=== PATIENT | male | born 1935 | race Caucasian/White ===

== ENCOUNTER 2024-11-15 05:40 | Day surgery (SDC) | payer MEDICARE, BC ==
[2024-11-15] MEDS: Sodium Chloride 0.9% 10 ML Syringe FLUSH PRN (07:26)
[2024-11-15 08:45] VITALS: BP 123/60; PULSE 70
== END 2024-11-15 09:00 | disposition home or self-care (01) ==
LOC: JP.SDS 05:40
PROVIDERS: ATTEND Ophthalmology
DX: E11.36 Type 2 diabetes mellitus with diabetic cataract (principal); H25.12 Age-related nuclear cataract, left eye; E78.00 Pure hypercholesterolemia, unspecified; I10 Essential (primary) hypertension; Z79.82 Long term (current) use of aspirin; Z79.84 Long term (current) use of oral hypoglycemic drugs; Z79.899 Other long term (current) drug therapy
CPT/HCPCS: 66984; V2632

== ENCOUNTER 2024-12-13 07:17 | Day surgery (SDC) | payer MEDICARE, BC ==
[2024-12-13] MEDS: Sodium Chloride 0.9% 10 ML Syringe FLUSH PRN (08:18)
[2024-12-13 09:14] VITALS: BP 152/62; PULSE 71
== END 2024-12-13 09:10 | disposition home or self-care (01) ==
LOC: JP.SDS 07:17
PROVIDERS: ATTEND Ophthalmology
DX: E11.36 Type 2 diabetes mellitus with diabetic cataract (principal); H25.11 Age-related nuclear cataract, right eye; E78.00 Pure hypercholesterolemia, unspecified; I10 Essential (primary) hypertension; Z79.82 Long term (current) use of aspirin; Z79.84 Long term (current) use of oral hypoglycemic drugs; Z79.899 Other long term (current) drug therapy
CPT/HCPCS: 66984; V2632; 00142-QZ

== ENCOUNTER 2025-01-22 15:17 | Emergency (ER) | payer MEDICARE, BC ==
[2025-01-22 16:11] LABS: APPEARANCE,URINE CLEAR (CLEAR); GLUCOSE,URINE 100 mg/dL (NEGATIVE); OCCULT BLOOD,URINE SMALL (NEGATIVE)
[2025-01-22 16:24] LABS: SQUAMOUS EPITHELIAL CELLS,UR NOT SEEN /HPF; UROTHELIAL CELLS,URINE NOT SEEN /HPF
[2025-01-22 16:26] LABS: INR 1.0
[2025-01-22 17:52] VITALS: BP 137/92; PULSE 77
[2025-01-22] MEDS: Acetaminophen/HYDROcodone 325-5 MG Tab PO ONE ×2 (18:18→18:46)
== END 2025-01-22 19:45 | disposition home or self-care (01) ==
LOC: JP.ED 15:17
DX: S32.592A Other specified fracture of left pubis, initial encounter for closed fracture (principal); I10 Essential (primary) hypertension; E78.00 Pure hypercholesterolemia, unspecified; E11.9 Type 2 diabetes mellitus without complications; Z79.82 Long term (current) use of aspirin; Z79.899 Other long term (current) drug therapy; Z79.84 Long term (current) use of oral hypoglycemic drugs; W18.39XA Other fall on same level, initial encounter; Y92.009 Unspecified place in unspecified non-institutional (private) residence as the place of occurrence of the external cause
CPT/HCPCS: 36415; 73502-26-LT; 73502-LT; 73700-LT; 76377; 81001; 85610; 99284; A9270-GY